=== PATIENT | female | born 2000 | race Hispanic/Latino ===

== ENCOUNTER 2022-02-05 03:31 | Emergency (ER) | payer OTHER ==
[2022-02-05] MEDS ORDERED: Sulfameth/Trimethoprim DS 800-160mg TAB ONE (04:09)
[2022-02-05] MEDS ORDERED: HYDROcodone/Acetaminophen 5/325 mg Tablet ONE (04:12)
== END 2022-02-05 04:21 | disposition home or self-care (01) ==
LOC: NAV ERS 03:31
DX: L05.01 Pilonidal cyst with abscess (principal); F17.290 Nicotine dependence, other tobacco product, uncomplicated
CPT/HCPCS: 10080